=== PATIENT | female | born 1940 | race Caucasian/White ===

== ENCOUNTER 2019-07-22 11:49 | Observation (INO) | payer MEDICARE ==
[~2019-07-22] VITALS: Ht 157.5 cm; Wt 72.6 kg
[~2019-07-22 11:49] MED LIST: ACCOLATE10 MG; ADLT ASA LOW81 MG PO; ASPIRIN ADULT L81 MG PO; B-122000 MCG PO; BACLOFEN10 MG PO; BENADRYL25 MG PO; CALCIUM CITRATE1 TAB PO; CIPRO250 MG PO; DIPYRIDAMOLE25 MG PO; DONEPEZIL5 MG PO; LASIX20 MG PO; LEVOTHYROXIN50 MCG PO; LEVOTHYROXIN75 MC1 PO; LEVOTHYROXIN75 MCG PO; LORTAB 10 PO; LORTAB 10-325 M1 TAB PO; LORTAB 5/3255 MG PO; LORTAB 7.5-3251 TAB PO; MULTIVITAM10 PO; OMEGA-3 FISH1000 MG PO; OMEPRAZOLE20 MG PO; OXYCOD/APAP1 TA4 PO; PERCOCET 5/325M1 TAB PO; PERCOCET1 TA4 PO; PRAVASTATIN SOD80 MG PO; PRAVASTATIN20 MG PO; PRILOSEC20 MG PO; SUPER B W/C PO; TYLENOL # 31 TA1 PO
[2019-07-22 12:37] LABS: HEMATOCRIT 38.9 % (37.0-47.0); HEMOGLOBIN 13.1 g/dl (12.0-16.0); IMMATURE GRANULOCYTES 0.5 % (0.0-5.0); MEAN CELL VOLUME 92.4 fL CALC (80.0-100.0); MEAN CORPUSCULAR HGB 31.1 pG CALC (26.0-32.0); MEAN CORPUSCULAR HGB CONC 33.7 g/L CALC (32.0-36.0); NEUT# 11.39 thou/uL (2.00-7.15); RED BLOOD COUNT 4.21 mill/uL (4.20-5.60); RED CELL DISTRI WIDTH 12.3 % (11.5-15.5)
[2019-07-22 13:01] LABS: ALBUMIN 4.3 g/dL (3.2-5.0); ALKALINE PHOSPHATASE 58 u/l (38-126); BUN 17 mg/dL (8-23); BUN/CREATININE RATIO 20 (12-20 (CALC)); CHLORIDE 102 mmol/l (95-108); CREATININE 0.8 mg/dL (0.5-1.0); GFR > 60 ML/MIN (>=60 (CALC)); GFR FOR AFR.AMER. > 60 ML/MIN (>=60 (CALC)); LIPASE 75 u/l (23-300); SGOT/AST 26 u/l (9-36); TOTAL PROTEIN 7.3 g/dL (6.3-8.2)
[2019-07-22 13:05] LABS: ANION GAP 14 (6-22 (CALC)); BILIRUBIN, TOTAL 1.9 mg/dL (0.0-1.4); CARBON DIOXIDE 23 mmol/l (22-30); SODIUM 135 mmol/l (137-146)
[2019-07-22 13:09] LABS: URINE BILIRUBIN - DIPSTICK NEGATIVE (NEGATIVE); URINE BLOOD DIPSTICK MODERATE (NEGATIVE); URINE COLOR YELLOW; URINE GLUCOSE - DIPSTICK NEGATIVE (NEGATIVE); URINE KETONE NEGATIVE (NEGATIVE); URINE LEUK ESTERASE NEGATIVE (NEGATIVE); URINE PROTEIN - DIPSTICK NEGATIVE (NEG-TRACE)
[2019-07-22 13:12] LABS: URINE NITRITE - DIPSTICK POSITIVE (Negative)
[2019-07-22 13:14] LABS: URINE BACTERIA MANY hpf; URINE EPITHELIAL CELLS MODERATE EPI/hpf (0-FEW)
[2019-07-22 13:30] LABS: TSH, 3RD GENERATION 1.08 uIU/mL (0.47 - 4.68)
[2019-07-22] MEDS ORDERED: HYDROXYZ HCL10 MG PO (16:37)
[2019-07-22] MEDS ORDERED: LEVOTHYROXIN50 MC1 PO (16:38)
[2019-07-22] MEDS ORDERED: PRAVASTATIN80 MG PO (16:41)
[2019-07-22] MEDS ORDERED: FISH OIL 1200 M1 CAP PO (16:42)
[2019-07-22] MEDS ORDERED: VITAMIN B CO PO (16:44)
[2019-07-22 16:45] VITALS: BP 103/65
[2019-07-22 18:48] VITALS: BP 109/51
[2019-07-23 03:05] VITALS: BP 118/68
[2019-07-23 05:45] LABS: HEMATOCRIT 35.8 % (37.0-47.0); IMMATURE GRANULOCYTES 0.4 % (0.0-5.0); MEAN CORPUSCULAR HGB 31.2 pG CALC (26.0-32.0); MEAN CORPUSCULAR HGB CONC 33.5 g/L CALC (32.0-36.0); NEUT# 5.63 thou/uL (2.00-7.15); RED BLOOD COUNT 3.85 mill/uL (4.20-5.60); RED CELL DISTRI WIDTH 12.3 % (11.5-15.5)
[2019-07-23 06:07] LABS: ANION GAP 10 (6-22 (CALC)); BUN 15 mg/dL (8-23); BUN/CREATININE RATIO 17 (12-20 (CALC)); CARBON DIOXIDE 25 mmol/l (22-30); CHLORIDE 108 mmol/l (95-108); CREATININE 0.9 mg/dL (0.5-1.0); GFR > 60 ML/MIN (>=60 (CALC)); GFR FOR AFR.AMER. > 60 ML/MIN (>=60 (CALC)); MAGNESIUM 2.1 mg/dL (1.6-2.3); POTASSIUM 3.8 mmol/l (3.5-5.1); SODIUM 140 mmol/l (137-146)
[2019-07-23 09:12] VITALS: BP 110/55
[2019-07-23 11:30] VITALS: BP 104/65
[2019-07-23 15:24] VITALS: BP 110/65
[2019-07-23 18:22] VITALS: BP 102/64
[2019-07-23 23:12] VITALS: BP 121/87
[2019-07-24 03:04] VITALS: BP 110/61
[2019-07-24 05:11] LABS: HEMATOCRIT 33.8 % (37.0-47.0); HEMOGLOBIN 11.3 g/dl (12.0-16.0); MEAN CELL VOLUME 93.4 fL CALC (80.0-100.0); MEAN CORPUSCULAR HGB 31.2 pG CALC (26.0-32.0); MEAN CORPUSCULAR HGB CONC 33.4 g/L CALC (32.0-36.0); RED BLOOD COUNT 3.62 mill/uL (4.20-5.60); RED CELL DISTRI WIDTH 12.1 % (11.5-15.5)
[2019-07-24 08:16] VITALS: BP 137/78
[2019-07-24 11:15] VITALS: BP 136/67
[2019-07-24] MEDS ORDERED: KEFLEX500 MG PO (11:33)
[2019-07-24 15:59] VITALS: BP 119/70
== END 2019-07-24 16:36 | disposition home or self-care (01) ==
LOC: ED 11:49 → ED-I 13:00 → ED 13:44 → ED-I 13:45 → ED 13:45 → MS2 13:45
PROVIDERS: Family Medicine; Nurse Practitioner Family; ADMIT Internal Medicine; ATTEND Internal Medicine
DX: N39.0 Urinary tract infection, site not specified (principal); G93.41 Metabolic encephalopathy; E03.9 Hypothyroidism, unspecified; E78.5 Hyperlipidemia, unspecified; F03.90 Unspecified dementia, unspecified severity, without behavioral disturbance, psychotic disturbance, mood disturbance, and anxiety; F17.200 Nicotine dependence, unspecified, uncomplicated; B96.20 Unspecified Escherichia coli [E. coli] as the cause of diseases classified elsewhere; Z86.73 Personal history of transient ischemic attack (TIA), and cerebral infarction without residual deficits
CPT/HCPCS: G0378; J0131